=== PATIENT | female | born 1940 | race Caucasian/White ===

== ENCOUNTER → 2016-10-12 | Outpatient (CLI) | payer MEDICARE ==
[~2016-10-12] MED LIST: CALCIUM 600 +1 EAC9 PO; CILOSTAZOL50 MG PO; CRESTOR5 MG PO; FA-80.8 MG PO; FISH OIL 1,0001 EAC7 PO; FOLIC ACID0.4 MG PO; LEVOTHYROXINE50 MCG PO; LISINOPRIL2.5 MG PO; LO-DOSE ASPIRIN81 M1 PO; METHOTREXATE2.5 MG PO; MILLIPRED5 MG PO; MYRBETRIQ25 MG PO; OMEPRAZOLE20 MG PO; VITAMIN C1000 MG PO; [UNRECOGNIZED DRUG - OTHER] TP
== END | disposition home or self-care (01) ==
LOC: CDC 09:00
DX: R94.31 Abnormal electrocardiogram [ECG] [EKG] (principal); R35.1 Nocturia; R39.15 Urgency of urination; R35.0 Frequency of micturition
CPT/HCPCS: 93000